=== PATIENT | female | born 1970 | race Caucasian/White ===

== ENCOUNTER 2019-01-28 06:30 | Day surgery (SDC) | payer SELFPAY ==
[2019-01-28] MEDS ORDERED: Bupivacaine 0.25% SDV PF* 10 ML VIAL INJ ONE (07:12)
[2019-01-28 08:14] VITALS: BP 126/83
--- NOTE | 2019-01-28 11:30 | OP ---
DATE OF OPERATION: 01/28/19 [facility] DATE OF : 70 SURGEON: Agapito Villalobos MD. PROFESSOR OF CRIMINAL JUSTICE: TAMIKO Knapp. ANESTHESIOLOGIST: None. ANESTHESIA: Local only with 0.25% Marcaine. PRE-OP DIAGNOSIS: Right trigger thumb. POST-OP DIAGNOSIS: Right trigger thumb. OPERATIVE PROCEDURE: Right trigger thumb release. INDICATIONS: Josette has the right trigger thumb. Her thumb has been locked in flexion for some time. I talked to her about the treatment options, and she had wanted to proceed with a trigger thumb release. She understands that the joint is likely to be stiff and require some stretching to get it to go straight. ESTIMATED BLOOD LOSS: 1 mL. COMPLICATIONS: None. FINDINGS: See above and below. DESCRIPTION OF PROCEDURE: Josette was seen in the preoperative holding area. The correct side, site, and procedure were identified. We came back to the operating room. The arm was prepped and draped in the usual fashion and a time- out was performed. I had infiltrated 0.25% plain Marcaine in the preoperative area. The arm was exsanguinated with the Esmarch and the tourniquet inflated to 250 mmHg. I made a transverse 1-cm incision in the MP joint flexion crease. I then raised full-thickness flaps off the tendon sheath. The A1 héctor was incised longitudinally. The release was completed distally and proximally with the tenotomy scissors. Ragnell retractors were placed to protect the digital nerves. There was some tenosynovitis. This was excised. Once I had confirmed the release, I had her flex and extend the thumb multiple times. There was no catching. She still cannot get the thumb as hyperextended as the contralateral side. I did do some stretching, and I was able to get the thumb move farther, but still the IP joint was quite stiff. We irrigated out the wounds. The skin was closed with 4-0 nylon suture. Wound was dressed with Xeroform, 4x4s, and Tegaderm. Tourniquet was deflated, and she was taken to the recovery room in stable condition. [id number]/[facility] #: [id number] MTDD
== END 2019-01-28 08:10 | disposition home or self-care (01) ==
LOC: OREAST 06:30
PROVIDERS: ATTEND Orthopaedic Surgery Hand Surgery
DX: M65.311 Trigger thumb, right thumb (principal); E78.5 Hyperlipidemia, unspecified; F41.8 Other specified anxiety disorders; Z87.891 Personal history of nicotine dependence
CPT/HCPCS: J3490